=== PATIENT | male | born 1960 | race African-American/Black ===

== ENCOUNTER 2018-11-18 09:00 | Emergency (ER) | payer MEDICARE, MEDICAID ==
--- NOTE | 2018-11-18 09:28 | UC ---
Abdominal Pain Male HPI - HPI Summary HPI Summary: Pt reports R flank pain, abd pain and vomiting since last night. He is concerned that his liver may also be rejecting; he is a liver recipient. He called his specialist in [facility] and was told to go see [facility] provider . He has regular GI specialist on board there. He then was told by them to go to here in [place]. Of note pt. was out of his PROGRAF medication and just took it this AM. He is unsure if this is what is causing symptoms. - History of Current Complaint Chief Complaint: UCAbdominalPain Stated Complaint: ABDOMINAL PAIN Time Seen by Provider: 11/18/18 09:14 Hx Obtained From: Patient Pain Intensity: 9 Pain Scale Used: 0-10 Numeric Location: Discrete At: RUQ Radiates: Yes Radiates to: Back, Flank Character: Aching, Burning Aggravating Factor(s): Movement Alleviating Factor(s): Nothing Associated Signs And Symptoms: Negative: Diaphoresis, Chest Pain - Allergies/Home Medications Allergies/Adverse Reactions: Allergies Allergy/AdvReac Type Severity Reaction Status Date / Time cephalexin [From Keflex] Allergy Unknown Verified 11/18/18 09:16 Reaction Details Sulfa (Sulfonamide Allergy See Comment Verified 11/18/18 09:16 Antibiotics) Home Medications: Home Medications Albuterol HFA INHALER* [Ventolin HFA Inhaler*] 1 puff INH Q4H PRN 11/18/18 [ History Confirmed 11/18/18] Dapsone TAB* 100 mg PO DAILY 11/18/18 [History Confirmed 11/18/18] Emtricitabine/Tenofovir (Tdf) [Truvada 200-300 mg] 1 tab PO DAILY 11/18/18 [ History Confirmed 11/18/18] Fluconazole [Fluconazole 200 mg tab] 200 mg PO DAILY 11/18/18 [History Confirmed 11/18/18] Magnesium Oxide [Magnesium] 800 mg PO DAILY 11/18/18 [History Confirmed 11/18/18 ] NIFEdipine [Nifedipine] 90 mg PO DAILY 11/18/18 [History Confirmed 11/18/18] Nystatin SUSPENSION ORAL SYR* 100,000 units PO QID 11/18/18 [History Confirmed 11/18/18] Raltegravir* Chewable Tablet [Isentress*] 500 mg PO BID 11/18/18 [History Confirmed 11/18/18] Rosuvastatin Calcium 10 mg PO DAILY 11/18/18 [History Confirmed 11/18/18] Tacrolimus [Prograf] 1 mg PO BID 11/18/18 [History Confirmed 11/18/18] Tacrolimus [Tacrolimus 0.5 MG-] 0.5 mg PO BID 11/18/18 [History Confirmed ] Tadalafil [Cialis] 5 mg PO PRN 11/18/18 [History] Ursodiol CAP* [Actigall CAP 300 MG*] 300 mg PO BID 11/18/18 [History Confirmed 11/18/18] PMH/Surg Hx/FS Hx/Imm Hx Previously Healthy: Yes Cardiovascular History: Cardiac Disease, Hypertension GI/ History: Kidney Stones, Other - LIVER DISEASE/LIVER RECIPIENT. - Surgical History Surgical History: Yes Surgery Procedure, Year, and Place: BILATERAL CARPAL TUNNEL RELEASE - [place]. liver transplant 2013 - Family History Known Family History: Positive: Hypertension - Social History Alcohol Use: None Substance Use Type: None Substance Use Comment - Amount & Last Used: HX OF DRUG ABUSE Smoking Status (MU): Former Smoker Amount Used/How Often: PACK A DAY Have You Smoked in the Last Year: No When Did the Patient Quit Smoking/Using Tobacco: 2004 Review of Systems All Other Systems Reviewed And Are Negative: Yes Constitutional: Positive: Other - Pain. Negative: Fever, Chills, Fatigue Skin: Negative: Rash, Bruising Respiratory: Positive: Negative Cardiovascular: Negative: Chest Pain Gastrointestinal: Positive: Abdominal Pain, Vomiting. Negative: Diarrhea, Nausea Genitourinary: Negative: Dysuria, Hematuria Physical Exam Triage Information Reviewed: Yes Completion Of Physical Exam Limited Due To: Extremis Appearance: Pain Distress - MILD, UNCOMFORTABLE IN CERTAIN POSITIONS. Vital Signs: Initial Vital Signs Temp 99.2 F 11/18/18 09:10 Pulse 76 11/18/18 09:10 Resp 19 11/18/18 09:10 BP 00/00 11/18/18 09:10 Pulse Ox 97 11/18/18 09:10 Vital Signs Reviewed: Yes Neck: Positive: Supple, Nontender, No Lymphadenopathy Respiratory Exam: Normal Cardiovascular Exam: Normal Abdomen Description: Positive: CVA Tenderness (R), Distended. Negative: CVA Tenderness (L), Guarding Neurological: Positive: Alert Skin: Negative: Rashes Abd Pain Male Course/Dx - Course Course Of Treatment: Vomiting and abd pain that started this AM. Radiates to RuQ and flank/back. Not thought to be cardiac and vitals are stable. Given his Liver transplant hx as well as renal stone hx it is thought he needed a higher level of care. Pt is stable and exam concerning for R renal stone. Although prograf can cause abd pain/vomiting he should go to ED to rule out renal stone vs other source. I offered ambulance and he declined. - Differential Dx/Clinical Impression Differential Diagnosis/HQI/PQRI: Appendicitis, Bowel Obstruction, Hepatitis, Ureteral Stone, Urinary Tract Infection, Other Provider Diagnosis: Acute flank pain Discharge - Sign-Out/Discharge Documenting (check all that apply): Patient Departure All imaging exams completed and their final reports reviewed: No Studies - Discharge Plan Condition: Good Disposition: HOME-RECOMMEND TO ED Patient Education Materials: Kidney Stones (ED) Referrals: Young Tamez MD [Primary Care Provider] - Additional Instructions: There is a chance you have a kidney stone which we are unable to assess or treat here at the urgent care. There is a chance you have more serious issues happening as well. The safest thing would be for you to go directly to the emergency room. I have offered an ambulance but you have decided to have your relative drive you. - Billing Disposition and Condition Condition: GOOD Disposition: Home-Recommend to ED
[2018-11-18 09:44] VITALS: BP 135/78
== END 2018-11-18 10:01 | disposition home health service (06) ==
LOC: UCEAST 09:00
DX: R10.9 Unspecified abdominal pain (principal); I10 Essential (primary) hypertension; Z88.2 Allergy status to sulfonamides; Z87.891 Personal history of nicotine dependence; Z94.4 Liver transplant status
CPT/HCPCS: 81002; 99212; G0463

== ENCOUNTER 2021-07-31 15:20 | Inpatient (IN) ==
[2021-07-31 15:59] LABS: INR 1.04 (0.86-1.15)
[2021-07-31 16:31] LABS: Albumin 4.6 g/dL (3.2-5.2); Albumin/Globulin Ratio 1.5 (1-3); Calcium 9.4 mg/dL (8.6-10.3); Globulin 3.1 g/dL (2-4); Total Bilirubin 1.2 mg/dL (0.2-1.0); Total Protein 7.7 g/dL (6.4-8.9); eGFR CKD-EPI 53.2 (>60)
[2021-07-31 16:55] LABS: ABS Basophils 0.1 10^3/ul (0-0.2); ABS Eosinophils 0.2 10^3/ul (0-0.6); ABS Lymphocytes 1.1 10^3/ul (1.0-4.8); ABS Monocytes 0.5 10^3/ul (0-0.8); ABS Neutrophils 3.6 10^3/ul (1.5-7.7); Eosinophil % 4.2 %; Hematocrit 41 % (42-52); Lymphocyte % 20.7 %; Mean Corpuscular HGB Conc 34 g/dL (31-36); Mean Corpuscular Hemoglobin 30 pg (27-31); Mean Corpuscular Volume 87 fL (80-94); Mean Platelet Volume 9.8 fL (7.4-10.4); Nucleated Red Blood Cells % 0.2; Platelet Count 208 10^3/uL (150-450); Red Blood Count 4.69 10^6 /uL (4.18-5.48); Red Cell Distribution Width 14 % (10-15); White Blood Count 5.5 10^3/uL (3.5-10.8)
[2021-07-31] MEDS ORDERED: Iodixanol (CONTRAST) 320 MG/ML 100 ML SDV IV ONE (16:56)
[2021-07-31] MEDS ORDERED: Albuterol HFA INHALER 8 gm MDI INH PRN (17:15)
[2021-07-31 17:18] LABS: High Sensitivity Troponin 1 Hr 34 pg/mL (<20)
[2021-07-31 18:39] LABS: HDL Cholesterol 35.2 mg/dL
[2021-07-31] MEDS ORDERED: Dextrose 50% Syringe 50 ml 25 GM/50 ML SYRINGE IV PUSH PRN (18:51)
[2021-07-31 18:54] LABS: TSH Ultra Thyroid Stim Horm 6.29 mcIU/mL (0.34-5.60)
[2021-07-31] MEDS: Heparin 5000 UNITS/ML 1 mL VIAL SUBCUT SCH (22:31)
[2021-08-01 04:58] LABS: Urine Appearance Clear; Urine Bilirubin Negative (Negative); Urine Blood 1+ (Negative); Urine Color Yellow; Urine Glucose 2+(150 mg/dL) (Negative); Urine Ketones Negative (Negative); Urine Nitrite Negative (Negative); Urine Protein 1+(30 mg/dL) (Negative); Urine Specific Gravity 1.019 (1.002-1.030); Urine Urobilinogen Negative (Negative)
[2021-08-01 05:03] LABS: Urine Bacteria Absent (Absent); Urine Red Blood Cell Trace(0-2/hpf) (Absent); Urine White Blood Cell Absent (Absent)
[2021-08-01] MEDS: Heparin 5000 UNITS/ML 1 mL VIAL SUBCUT SCH ×3 (06:08→22:22)
[2021-08-01 06:23] LABS: ABS Basophils 0.1 10^3/ul (0-0.2); ABS Eosinophils 0.3 10^3/ul (0-0.6); ABS Lymphocytes 2.3 10^3/ul (1.0-4.8); ABS Monocytes 0.7 10^3/ul (0-0.8); ABS Neutrophils 2.8 10^3/ul (1.5-7.7); Eosinophil % 4.1 %; Hematocrit 41 % (42-52); Hemoglobin 13.9 g/dL (14.0-18.0); Lymphocyte % 37.7 %; Mean Corpuscular HGB Conc 34 g/dL (31-36); Mean Corpuscular Hemoglobin 29 pg (27-31); Mean Corpuscular Volume 87 fL (80-94); Mean Platelet Volume 9.6 fL (7.4-10.4); Nucleated Red Blood Cells % 0.1; Platelet Count 200 10^3/uL (150-450); Red Blood Count 4.72 10^6 /uL (4.18-5.48); Red Cell Distribution Width 14 % (10-15); White Blood Count 6.2 10^3/uL (3.5-10.8)
[2021-08-01 07:11] LABS: Blood Urea Nitrogen 20 mg/dL (6-24); CO2 Carbon Dioxide 24 mmol/L (22-32); Calcium 9.5 mg/dL (8.6-10.3); Chloride 105 mmol/L (101-111); Glucose 121 mg/dL (70-100); Sodium 137 mmol/L (135-145); eGFR CKD-EPI 66.4 (>60)
[2021-08-01 07:17] LABS: Anion Gap 8 mmol/L (2-11)
[2021-08-01 07:28] LABS: Free T4 0.89 ng/dL (0.61-1.12)
[2021-08-01] MEDS: Aspirin EC 81 mg TAB.EC (enteric coated) PO SCH (08:16)
[2021-08-01] MEDS: Tenofovir/Emtricitab 300/200 MG TAB PO SCH (08:17)
[2021-08-01 11:53] LABS: High Sensitivity Troponin 1 Hr 61 pg/mL (<20)
[2021-08-02 06:28] LABS: Albumin 3.8 g/dL (3.2-5.2); Albumin/Globulin Ratio 1.3 (1-3); Calcium 9.3 mg/dL (8.6-10.3); Globulin 2.9 g/dL (2-4); Magnesium 1.9 mg/dL (1.9-2.7); Total Bilirubin 0.8 mg/dL (0.2-1.0); Total Protein 6.7 g/dL (6.4-8.9); eGFR CKD-EPI 58.3 (>60)
[2021-08-02] MEDS: Heparin 5000 UNITS/ML 1 mL VIAL SUBCUT SCH ×3 (06:38→21:09)
[2021-08-02] MEDS: Aspirin EC 81 mg TAB.EC (enteric coated) PO SCH (08:51)
[2021-08-02] MEDS: Tenofovir/Emtricitab 300/200 MG TAB PO SCH (08:52)
[2021-08-03] MEDS ORDERED: NS 0.9% 1000 ml BAG 1,000 ML IV SCH ×2 (00:01→23:55)
[2021-08-03 05:00] LABS: ABS Basophils 0.1 10^3/ul (0-0.2); ABS Eosinophils 0.3 10^3/ul (0-0.6); ABS Lymphocytes 1.7 10^3/ul (1.0-4.8); ABS Monocytes 0.5 10^3/ul (0-0.8); ABS Neutrophils 1.8 10^3/ul (1.5-7.7); Eosinophil % 7.1 %; Hematocrit 38 % (42-52); Hemoglobin 13.2 g/dL (14.0-18.0); Lymphocyte % 39.6 %; Mean Corpuscular HGB Conc 34 g/dL (31-36); Mean Corpuscular Hemoglobin 30 pg (27-31); Mean Corpuscular Volume 87 fL (80-94); Mean Platelet Volume 9.2 fL (7.4-10.4); Nucleated Red Blood Cells % 0.3; Platelet Count 158 10^3/uL (150-450); Red Blood Count 4.39 10^6 /uL (4.18-5.48); Red Cell Distribution Width 14 % (10-15); White Blood Count 4.4 10^3/uL (3.5-10.8)
[2021-08-03] MEDS: Heparin 5000 UNITS/ML 1 mL VIAL SUBCUT SCH ×3 (05:14→21:09)
[2021-08-03 05:21] LABS: Calcium 9.1 mg/dL (8.6-10.3); Magnesium 1.7 mg/dL (1.9-2.7); Potassium 4.1 mmol/L (3.5-5.0); eGFR CKD-EPI 70.5 (>60)
[2021-08-03] MEDS ORDERED: Magnesium Sulfate 2 gm BAG 2 GM/50 ML BAG IVPB ONE (07:05)
[2021-08-03] MEDS: Tenofovir/Emtricitab 300/200 MG TAB PO SCH (07:37)
[2021-08-03] MEDS: Aspirin EC 81 mg TAB.EC (enteric coated) PO SCH (07:37)
[2021-08-03] MEDS ORDERED: Heparin 1,000 UNIT/ML 10 ml (10,000 UNITS) CATHLAB/DIALYSIS ONE (07:53)
[2021-08-03] MEDS ORDERED: VERAPAMIL 2.5 MG/ML 2 ML VIAL ** 5 mg/2 ml ONE (07:53)
[2021-08-03] MEDS ORDERED: fentaNYL 100 mcg/2 ml 50 MCG/ML VIAL ONE (07:53)
[2021-08-03] MEDS ORDERED: Midazolam 5 mg/5 ml VIAL 1 mg/ml 5 ml VIAL (5 mg) ONE (07:53)
[2021-08-03] MEDS ORDERED: Heparin 2 UNITS/ML 1000 mls 2,000 ML IV ONE (07:54)
[2021-08-03] MEDS ORDERED: Iohexol 350 (CONTRAST) 200 ML MDV IV ONE (07:54)
[2021-08-03] MEDS ORDERED: nitroGLYCERIN DRIP 25,000 MCG/250 ML BTL ONE (07:54)
[2021-08-03] MEDS ORDERED: diPHENhydraMINE 25 mg TAB PO PRN (08:00)
[2021-08-03] MEDS ORDERED: Lidocaine 1% MPF 5 ML VIAL ONE (08:06)
[2021-08-04] MEDS: Heparin 5000 UNITS/ML 1 mL VIAL SUBCUT SCH ×2 (06:04→12:47)
[2021-08-04 06:44] LABS: Calcium 9.2 mg/dL (8.6-10.3); Potassium 4.3 mmol/L (3.5-5.0); eGFR CKD-EPI 76.7 (>60)
[2021-08-04 07:19] LABS: Magnesium 1.7 mg/dL (1.9-2.7)
[2021-08-04] MEDS: Tenofovir/Emtricitab 300/200 MG TAB PO SCH (07:25)
[2021-08-04] MEDS: Aspirin EC 81 mg TAB.EC (enteric coated) PO SCH (07:26)
[2021-08-04] MEDS ORDERED: Clindamycin 900 MG/D5W BAG 900 MG/50 ML BAG IVPB ONE (08:00)
[2021-08-04] MEDS ORDERED: Midazolam 5 mg/5 ml VIAL 1 mg/ml 5 ml VIAL (5 mg) ONE (08:01)
[2021-08-04] MEDS ORDERED: fentaNYL 100 mcg/2 ml 50 MCG/ML VIAL ONE (08:01)
[2021-08-04] MEDS ORDERED: Lidocaine 1% VIAL 10 MG/ML VIAL ONE (08:01)
[2021-08-04] MEDS ORDERED: Magnesium Sulfate 2 gm BAG 2 GM/50 ML BAG IVPB ONE (08:19)
[2021-08-04 12:43] VITALS: BP 158/86
== END 2021-08-04 14:18 | disposition home or self-care (01) | DRG 225 ==
LOC: ED 15:20 → SUATTDRO 18:39 → EDHOLD 18:39 → MEDTELE 21:01 → ICU 21:12 → MEDTELE 08-01 17:10
PROVIDERS: ADMIT Internal Medicine; ATTEND Hospitalist